=== PATIENT | female | born 1965 | race Asian ===

== ENCOUNTER 2020-09-25 16:13 | Emergency (ER) | payer BC, SELFPAY ==
[2020-09-25] VITALS (7 sets, daily range): BP systolic 124–147; BP diastolic 60–77; PULSE 72–85; RESP 16–18; TEMP 36.7–36.8; O2SAT 98–99; BMI 27.3
--- NOTE | ~2020-09-25 | XR_ITS ---
EXAMINATION: XR CHEST CLINICAL INFORMATION: Chest pain COMPARISON: None TECHNIQUE: 2 views of the chest were obtained. FINDINGS: No significant abnormality is noted involving the heart, lungs, mediastinum, bony thorax or soft tissues. Surgical clips are noted in the gallbladder fossa. XR/XR chest 2V IMPRESSION: Unremarkable examination.
--- NOTE | ~2020-09-25 | CT_ITS ---
CT head/brain wo con CLINICAL INFORMATION: Reason for Exam headache and vertigo COMPARISON: No prior CT scan available for comparison. TECHNIQUE: Department standard protocol. This CT examination was performed using dose optimization techniques as appropriate, variously including the following: *Automated exposure control *Adjustment of mA and/or kV according to patient size (this includes techniques or standardized protocols for targeted exams where dose is matched to indication/reason for exam; i.e. extremities or head) *Use of iterative reconstruction technique DLP: 673 mGy-cm FINDINGS: CEREBRAL HEMISPHERES: There is no evidence of intra-axial or extra-axial mass, hemorrhage or acute infarct. BRAIN PARENCHYMA: Normal woodard-white matter differentiation. SUBDURAL SPACE: No bleed. BASAL GANGLIA AND PINEAL GLAND: Unremarkable VENTRICLES: Symmetric and normal in size. CEREBELLUM AND BRAINSTEM: No space-occupying mass, hemorrhage or acute infarct. CEREBELLOPONTINE ANGLES: No lesion found. ORBITS: No intraorbital mass. VESSELS: Unremarkable SKULL BASE: Unremarkable INCLUDED SINUSES AT SKULL BASE: Clear SKULL AND SKIN: No fracture or bone lesion found. CT/CT head/brain wo con IMPRESSION: No CT evidence of intracranial space-occupying mass, bleed or infarct. Normal CT scan does not rule out the possibility of hyperacute infarct in the first 12 hours. If patient symptoms persist may consider correlation with MRI, which is more sensitive for early acute infarct.
--- NOTE | 2020-09-25 17:34 | ED_ITS ---
HPI - General Adult General Chief complaint: Dizziness <KAYLA Lin - Last Filed: 09/25/20 17:37> Stated complaint: Dizziness/Vomiting <KAYLA Lin - Last Filed: 09/25/20 17:37> Time Seen by Provider: 09/25/20 17:34 <KAYLA Lin - Last Filed: 09/25/20 17:37> Source: patient <Bret Young MD - Last Filed: 09/25/20 23:05> Mode of arrival: ambulatory <Bret Young MD - Last Filed: 09/25/20 23:05> Limitations: no limitations <Bret Young MD - Last Filed: 09/25/20 23:05> History of Present Illness HPI narrative: Woke this morning with the room spinning and has a headache. patient vomited twice. Does not suffer from headaches or vertigo. Headache is frontal. <Bret Young MD - Last Filed: 09/25/20 23:05> Onset (ago): hour(s) <Bret Young MD - Last Filed: 09/25/20 23:05> Radiation: non-radiation <Bret Young MD - Last Filed: 09/25/20 23:05> Severity: moderate <Bret Young MD - Last Filed: 09/25/20 23:05> Pain Consistency: constant <Bret Young MD - Last Filed: 09/25/20 23:05> Associated symptoms: headaches and nausea/vomiting <Bret Young MD - Last Filed: 09/25/20 23:05> Related Data Home medications: Previous Rx's Medication Instructions Recorded meclizine 25 mg PO TID PRN #20 tab 09/25/20 naproxen [Naprosyn] 500 mg PO BID #20 tab 09/25/20 <KAYLA Lin - Last Filed: 09/25/20 17:37> Allergies/adverse reactions: Allergies Allergy/AdvReac Type Severity Reaction Status Date / Time No Known Allergies Allergy Verified 09/25/20 17:35 <KAYLA Lin - Last Filed: 09/25/20 17:37> Review of Systems Constitutional: Constitutional: Reports no additional constitutional complaints <Bret Young MD - Last Filed: 09/25/20 23:05> Eyes: Eyes: Reports no additional eye complaints <Bret Young MD - Last Filed: 09/25/20 23:05> ENT: Denies dizziness <Bret Young MD - Last Filed: 09/25/20 23:05> Cardiovascular: Cardiovascular: Reports no additional cardiovascular complaints <Bret Young MD - Last Filed: 09/25/20 23:05> Respiratory: Respiratory: Reports as per HPI <Bret Young MD - Last Filed: 09/25/20 23:05> Gastrointestinal: Gastrointestinal: Reports no additional gastrointestinal complaints <Bret Young MD - Last Filed: 09/25/20 23:05> Genitourinary: Genitourinary: Reports no additional female genitourinary complaints <Bret Young MD - Last Filed: 09/25/20 23:05> Musculoskeletal: Musculoskeletal: Reports no additional musculoskeletal complaints <Bret Young MD - Last Filed: 09/25/20 23:05> Integumentary/Breasts: Skin/Breast: Denies rash <Bret Young MD - Last Filed: 09/25/20 23:05> Neurologic: Reports system reviewed and no additional complaints, except as documented, Denies dizziness and Denies Sensory deficit (Neuro) <Bret Young MD - Last Filed: 09/25/20 23:05> Psychiatric: Psychiatric: Denies anxiety <Bret Young MD - Last Filed: 09/25/20 23:05> [facility] Social History Social History: Social History Patient Tobacco Use Status: Never used Tobacco Use of substances other than those prescribed or required for medical reasons: No Advance Directives: No Advance Directives Information Provided: Yes <KAYLA Lin - Last Filed: 09/25/20 17:37> Physical Exam Vital Signs: Vital Signs: Last Vital Signs Temp 98.3 F 09/25/20 20:21 Pulse 84 09/25/20 20:21 Resp 18 09/25/20 20:21 BP 136/60 09/25/20 20:21 Pulse Ox 98 09/25/20 20:21 Body Mass Index 27.3 <Stephanie Renschler, PA - Last Filed: 09/25/20 17:37> Vital Signs: Last Vital Signs Temp 98.3 F 09/25/20 20:21 Pulse 84 09/25/20 20:21 Resp 18 09/25/20 20:21 BP 136/60 09/25/20 20:21 Pulse Ox 98 09/25/20 20:21 Body Mass Index 27.3 <Bret Young MD - Last Filed: 09/25/20 23:05> Const: Other: Patient suffering from headache <Bret Young MD - Last Filed: 09/25/20 23:05> General: healthy appearing <Bret Young MD - Last Filed: 09/25/20 23:05> Nutritional Appearance: average body habitus <Bret Young MD - Last Filed: 09/25/20 23:05> Orientation/consciousness: oriented to person and patient oriented x3 <Bret Young MD - Last Filed: 09/25/20 23:05> Limitations: no limitations <Bret Young MD - Last Filed: 09/25/20 23:05> HENMT: Other: TMs normal <Bret Young MD - Last Filed: 09/25/20 23:05> Head: Yes normal to inspection <Bret Young MD - Last Filed: 09/25/20 23:05> Ears: external ears normal <Bret Young MD - Last Filed: 09/25/20 23:05> General nose exam: Normal external nose present <Bret Young MD - Last Filed: 09/25/20 23:05> Mouth: Normal oral and palatal mucosa present and oropharynx normal <Bret Young MD - Last Filed: 09/25/20 23:05> Throat: Yes posterior oropharynx normal <Bret Young MD - Last Filed: 09/25/20 23:05> Eyes: General: appearance normal, both eyes and all related structures <Bret Young MD - Last Filed: 09/25/20 23:05> Neck: Other: supple <Bret Young MD - Last Filed: 09/25/20 23:05> Neck: Yes normal visual inspection <Bret Young MD - Last Filed: 09/25/20 23:05> Chest: Chest palpation & inspection: normal inspection of the chest <Bret Young MD - Last Filed: 09/25/20 23:05> Resp: Auscultation: clear to auscultation bilaterally <Bret Young MD - Last Filed: 09/25/20 23:05> Cardio: Jugular venous distension: no JVD <Bret Young MD - Last Filed: 09/25/20 23:05> Rate: regular rate <Bret Young MD - Last Filed: 09/25/20 23:05> Rhythm: regular rhythm <Bret Young MD - Last Filed: 09/25/20 23:05> Heart sounds: S1 normal heart sound present and S2 normal heart sound present <Bret Young MD - Last Filed: 09/25/20 23:05> GI: Inspection: Yes normal to inspection <Bret Young MD - Last Filed: 09/25/20 23:05> Palpation (GI): Soft to palpation, nontender and No hepatosplenomegaly present <Bret Young MD - Last Filed: 09/25/20 23:05> Auscultation: normal bowel sounds <Bret Young MD - Last Filed: 09/25/20 23:05> : General: Yes no CVA tenderness <Bret Young MD - Last Filed: 0 09/25/20 23:05> Back/Spine/Pelvis: Back: no CVA tenderness <Bret Young MD - Last Filed: 09/25/20 23:05> Skin: General skin exam: no rashes or lesions noted <Bret Young MD - Last Filed: 09/25/20 23:05> Neuro: General: oriented to person and patient oriented x3 <Bret Young MD - Last Filed: 09/25/20 23:05> Cranial nerves: Yes CN's II-XII intact bilaterally <Bret Young MD - Last Filed: 09/25/20 23:05> Motor exam (neuro): 5/5 motor strength present throughout <Bret Young MD - Last Filed: 09/25/20 23:05> Sensory Exam: No Sensory deficit (Neuro) <Bret Young MD - Last Filed: 09/25/20 23:05> Extrem: General: Yes normal to inspection <Bret Young MD - Last Filed: 09/25/20 23:05> Psych: Appearance: grossly normal <Bret Young MD - Last Filed: 09/25/20 23:05> Course Course Course Narrative: Rapid medical assessment: 55 y/o female with history of HTN presenting to ED from Urgent Care with acute onset of dizziness that started when she woke up this morning, vomiting x2 along intermittent left sided chest pain that started 3 weeks. No SOB or HALL. Urgent Care EKG with possible S1Q3T3 concerning for PE so she was brought to the ER for evaluation. No tachycardia or hypoxia. No personal or family hx blood clots. Will repeat EKG, labs including DDIMER. <KAYLA Lin - Last Filed: 09/25/20 17:37> Reevaluation(s) Reevaluation #1: EKG has no evidence of PE, patient with headache and vertigo <Bret Young MD - Last Filed: 09/25/20 23:05> Reevaluation #2: patient with negative head CT, headache mostly improved but now has vertigo with nystagmus will give meclizine <Bret Young MD - Last Filed: 09/25/20 23:05> Time: 21:18 <Bret Young MD - Last Filed: 09/25/20 23:05> Reevaluation #3: Patient improved with meclizine will dc home with vertigo diagnosis and headache <Bret Young MD - Last Filed: 09/25/20 23:05> Time: 23:03 <Bret Young MD - Last Filed: 09/25/20 23:05> Medical Decision Making Lab Data Result diagrams: : 09/25/20 18:49 09/25/20 18:49 <KAYLA Lin - Last Filed: 09/25/20 17:37> Labs: Lab Results 09/25/20 09/25/20 09/25/20 Range/Units 18:41 18:49 18:49 WBC 11.8 H (4.8-10.8) X10*3/uL RBC 3.79 L (4.20-5.50) X10*6/uL Hgb 11.0 L (12.0-16.0) g/dl Hct 33.5 L (37-47) % MCV 88.4 (80-98) fL MCH 29.0 (27.0-33.0) pg MCHC 32.8 (31.0-35.0) g/dl RDW 12.1 (11.0-16.0) % Plt Count 393 (160-400) X10*3/uL MPV 8.8 L (9.4-12.3) fL Immature Gran % (Auto) 0.8 H (0.0-0.4) % Neut % (Auto) 83.9 H (45-73) % Lymph % (Auto) 12.6 L (20-40) % [place] % (Auto) 2.2 (2-11) % Eos % (Auto) 0.2 (0-4) % Baso % (Auto) 0.3 (0-2) % Lymph # (Auto) 1.5 (1.2-4.9) X10*3/uL [place] # (Auto) 0.3 (0.1-1.2) X10*3/uL Eos # (Auto) 0.0 (0.0-0.4) X10*3/uL Baso # (Auto) 0.0 (0.0-0.2) X10*3/uL Abs Immat Gran (auto) 0.09 H (0.00-0.03) X10*3/uL Absolute Neuts (auto) 9.9 H (2.0-8.3) X10*3/uL Absolute Nucleated RBC 0.000 (0.0-0.012) X10*3/uL Nucleated RBC % (auto) 0.0 (0.0-0.2) /100WBC PT (9.9-13.0) SEC INR (0.9-1.1) APTT (24.1-38.0) SEC Sodium 139 (135-145) mmol/L Potassium 4.3 (3.3-5.1) mmol/L Chloride 106 (96-108) mmol/L Carbon Dioxide 24 (22-29) mmol/L Anion Gap 13 (12-20) BUN 12 (9-16) mg/dL Creatinine 0.60 (0.5-1.4) mg/dL Estim Creat Clear Calc 89.2 Estimated GFR > 60 Random Glucose 114 (60-115) mg/dL Calcium 9.5 (8.4-10.2) mg/dL Magnesium 2.0 (1.6-2.6) mg/dL Total Bilirubin 0.5 (0.0-1.0) mg/dL Direct Bilirubin 0.2 (0.0-0.5) mg/dL AST 34 H (5-31) U/L ALT 37 H (0-31) U/L Alkaline Phosphatase 107 (39-117) U/L Troponin I High Sens (<3.5-17.0) ng/L Total Protein 7.8 (6.5-8.0) g/dL Albumin 4.3 (3.5-5.0) g/dL Urine Color YELLOW Urine Appearance CLEAR Urine pH 7.0 (5.0-8.0) Ur Specific [place] 1.020 (1.005-1.025) Urine Protein 1+ H (NEG-TRACE) MG/DL Urine Glucose (UA) NEG (NEG) MG/DL Urine Ketones NEG (NEG) MG/DL Urine Blood 3+ H (NEG) Urine Nitrite NEG (NEG) Ur Leukocyte Esterase NEG (NEG) Urine RBC 30-49 H (0) /HPF Urine WBC 1-4 (0-4) /HPF Ur Squamous Epith Cells 2+ /LPF Urine Bacteria TRACE /LPF Urine Mucus 1+ /LPF 09/25/20 09/25/20 Range/Units 18:49 18:49 WBC (4.8-10.8) X10*3/uL RBC (4.20-5.50) X10*6/uL Hgb (12.0-16.0) g/dl Hct (37-47) % MCV (80-98) fL MCH (27.0-33.0) pg MCHC (31.0-35.0) g/dl RDW (11.0-16.0) % Plt Count (160-400) X10*3/uL MPV (9.4-12.3) fL Immature Gran % (Auto) (0.0-0.4) % Neut % (Auto) (45-73) % Lymph % (Auto) (20-40) % [place] % (Auto) (2-11) % Eos % (Auto) (0-4) % Baso % (Auto) (0-2) % Lymph # (Auto) (1.2-4.9) X10*3/uL [place] # (Auto) (0.1-1.2) X10*3/uL Eos # (Auto) (0.0-0.4) X10*3/uL Baso # (Auto) (0.0-0.2) X10*3/uL Abs Immat Gran (auto) (0.00-0.03) X10*3/uL Absolute Neuts (auto) (2.0-8.3) X10*3/uL Absolute Nucleated RBC (0.0-0.012) X10*3/uL Nucleated RBC % (auto) (0.0-0.2) /100WBC PT 10.5 (9.9-13.0) SEC INR 0.9 (0.9-1.1) APTT 34.2 (24.1-38.0) SEC Sodium (135-145) mmol/L Potassium (3.3-5.1) mmol/L Chloride (96-108) mmol/L Carbon Dioxide (22-29) mmol/L Anion Gap (12-20) BUN (9-16) mg/dL Creatinine (0.5-1.4) mg/dL Estim Creat Clear Calc Estimated GFR Random Glucose (60-115) mg/dL Calcium (8.4-10.2) mg/dL Magnesium (1.6-2.6) mg/dL Total Bilirubin (0.0-1.0) mg/dL Direct Bilirubin (0.0-0.5) mg/dL AST (5-31) U/L ALT (0-31) U/L Alkaline Phosphatase (39-117) U/L Troponin I High Sens < 3.5 (<3.5-17.0) ng/L Total Protein (6.5-8.0) g/dL Albumin (3.5-5.0) g/dL Urine Color Urine Appearance Urine pH (5.0-8.0) Ur Specific [place] (1.005-1.025) Urine Protein (NEG-TRACE) MG/DL Urine Glucose (UA) (NEG) MG/DL Urine Ketones (NEG) MG/DL Urine Blood (NEG) Urine Nitrite (NEG) Ur Leukocyte Esterase (NEG) Urine RBC (0) /HPF Urine WBC (0-4) /HPF Ur Squamous Epith Cells /LPF Urine Bacteria /LPF Urine Mucus /LPF <KAYLA Lin - Last Filed: 09/25/20 17:37> Lab Results 09/25/20 09/25/20 09/25/20 Range/Units 18:41 18:49 18:49 WBC 11.8 H (4.8-10.8) X10*3/uL RBC 3.79 L (4.20-5.50) X10*6/uL Hgb 11.0 L (12.0-16.0) g/dl Hct 33.5 L (37-47) % MCV 88.4 (80-98) fL MCH 29.0 (27.0-33.0) pg MCHC 32.8 (31.0-35.0) g/dl RDW 12.1 (11.0-16.0) % Plt Count 393 (160-400) X10*3/uL MPV 8.8 L (9.4-12.3) fL Immature Gran % (Auto) 0.8 H (0.0-0.4) % Neut % (Auto) 83.9 H (45-73) % Lymph % (Auto) 12.6 L (20-40) % [place] % (Auto) 2.2 (2-11) % Eos % (Auto) 0.2 (0-4) % Baso % (Auto) 0.3 (0-2) % Lymph # (Auto) 1.5 (1.2-4.9) X10*3/uL [place] # (Auto) 0.3 (0.1-1.2) X10*3/uL Eos # (Auto) 0.0 (0.0-0.4) X10*3/uL Baso # (Auto) 0.0 (0.0-0.2) X10*3/uL Abs Immat Gran (auto) 0.09 H (0.00-0.03) X10*3/uL Absolute Neuts (auto) 9.9 H (2.0-8.3) X10*3/uL Absolute Nucleated RBC 0.000 (0.0-0.012) X10*3/uL Nucleated RBC % (auto) 0.0 (0.0-0.2) /100WBC PT (9.9-13.0) SEC INR (0.9-1.1) APTT (24.1-38.0) SEC Sodium 139 (135-145) mmol/L Potassium 4.3 (3.3-5.1) mmol/L Chloride 106 (96-108) mmol/L Carbon Dioxide 24 (22-29) mmol/L Anion Gap 13 (12-20) BUN 12 (9-16) mg/dL Creatinine 0.60 (0.5-1.4) mg/dL Estim Creat Clear Calc 89.2 Estimated GFR > 60 Random Glucose 114 (60-115) mg/dL Calcium 9.5 (8.4-10.2) mg/dL Magnesium 2.0 (1.6-2.6) mg/dL Total Bilirubin 0.5 (0.0-1.0) mg/dL Direct Bilirubin 0.2 (0.0-0.5) mg/dL AST 34 H (5-31) U/L ALT 37 H (0-31) U/L Alkaline Phosphatase 107 (39-117) U/L Troponin I High Sens (<3.5-17.0) ng/L Total Protein 7.8 (6.5-8.0) g/dL Albumin 4.3 (3.5-5.0) g/dL Urine Color YELLOW Urine Appearance CLEAR Urine pH 7.0 (5.0-8.0) Ur Specific [place] 1.020 (1.005-1.025) Urine Protein 1+ H (NEG-TRACE) MG/DL Urine Glucose (UA) NEG (NEG) MG/DL Urine Ketones NEG (NEG) MG/DL Urine Blood 3+ H (NEG) Urine Nitrite NEG (NEG) Ur Leukocyte Esterase NEG (NEG) Urine RBC 30-49 H (0) /HPF Urine WBC 1-4 (0-4) /HPF Ur Squamous Epith Cells 2+ /LPF Urine Bacteria TRACE /LPF Urine Mucus 1+ /LPF 09/25/20 09/25/20 Range/Units 18:49 18:49 WBC (4.8-10.8) X10*3/uL RBC (4.20-5.50) X10*6/uL Hgb (12.0-16.0) g/dl Hct (37-47) % MCV (80-98) fL MCH (27.0-33.0) pg MCHC (31.0-35.0) g/dl RDW (11.0-16.0) % Plt Count (160-400) X10*3/uL MPV (9.4-12.3) fL Immature Gran % (Auto) (0.0-0.4) % Neut % (Auto) (45-73) % Lymph % (Auto) (20-40) % [place] % (Auto) (2-11) % Eos % (Auto) (0-4) % Baso % (Auto) (0-2) % Lymph # (Auto) (1.2-4.9) X10*3/uL [place] # (Auto) (0.1-1.2) X10*3/uL Eos # (Auto) (0.0-0.4) X10*3/uL Baso # (Auto) (0.0-0.2) X10*3/uL Abs Immat Gran (auto) (0.00-0.03) X10*3/uL Absolute Neuts (auto) (2.0-8.3) X10*3/uL Absolute Nucleated RBC (0.0-0.012) X10*3/uL Nucleated RBC % (auto) (0.0-0.2) /100WBC PT 10.5 (9.9-13.0) SEC INR 0.9 (0.9-1.1) APTT 34.2 (24.1-38.0) SEC Sodium (135-145) mmol/L Potassium (3.3-5.1) mmol/L Chloride (96-108) mmol/L Carbon Dioxide (22-29) mmol/L Anion Gap (12-20) BUN (9-16) mg/dL Creatinine (0.5-1.4) mg/dL Estim Creat Clear Calc Estimated GFR Random Glucose (60-115) mg/dL Calcium (8.4-10.2) mg/dL Magnesium (1.6-2.6) mg/dL Total Bilirubin (0.0-1.0) mg/dL Direct Bilirubin (0.0-0.5) mg/dL AST (5-31) U/L ALT (0-31) U/L Alkaline Phosphatase (39-117) U/L Troponin I High Sens < 3.5 (<3.5-17.0) ng/L Total Protein (6.5-8.0) g/dL Albumin (3.5-5.0) g/dL Urine Color Urine Appearance Urine pH (5.0-8.0) Ur Specific [place] (1.005-1.025) Urine Protein (NEG-TRACE) MG/DL Urine Glucose (UA) (NEG) MG/DL Urine Ketones (NEG) MG/DL Urine Blood (NEG) Urine Nitrite (NEG) Ur Leukocyte Esterase (NEG) Urine RBC (0) /HPF Urine WBC (0-4) /HPF Ur Squamous Epith Cells /LPF Urine Bacteria /LPF Urine Mucus /LPF <Bret Young MD - Last Filed: 09/25/20 23:05> Imaging Data Chest x-ray: Radiologist's impression: IMPRESSION: Unremarkable examination. <Bret Young MD - Last Filed: 09/25/20 23:05> CT scan - head: Radiologist's impression: IMPRESSION: No CT evidence of intracranial space-occupying mass, bleed or infarct. <Bret Young MD - Last Filed: 09/25/20 23:05> ECG Data Attestation: I personally reviewed and interpreted this ECG as follows: <Bret Young MD - Last Filed: 09/25/20 23:05> Interpretation: normal sinus of 75, no St or twave changes <Bret Young MD - Last Filed: 09/25/20 23:05> Discharge Plan Discharge Clinical Impression: Benign paroxysmal positional vertigo Qualifiers: Laterality: unspecified laterality Qualified Code(s): H81.10 - Benign paroxysmal vertigo, unspecified ear Headache Qualifiers: Headache type: unspecified Headache chronicity pattern: acute headache Intractability: not intractable Qualified Code(s): R51.9 - Headache, unspecified <KAYLA Lin - Last Filed: 09/25/20 17:37> Patient Disposition: Home, Self-Care <KAYLA Lin - Last Filed: 09/25/20 17:37> Instructions: Acute Headache (ED), Benign Paroxysmal Positional Vertigo (ED) <KAYLA Lin - Last Filed: 09/25/20 17:37> Prescriptions: New naproxen [Naprosyn] 500 mg tablet 500 mg PO BID Qty: 20 RF: 0 meclizine 25 mg tablet 25 mg PO TID PRN (Reason: dizziness) Qty: 20 RF: 0 <KAYLA Lin - Last Filed: 09/25/20 17:37> Referrals: Chavo Cardoso [Primary Care Provider] - 5 days <KAYLA Lin - Last Filed: 09/25/20 17:37>
--- NOTE | 2020-09-25 17:37 | ECG_ITS ---
Test Reason : DIZZINESS Blood Pressure : / mmHG Vent. Rate : 075 BPM Atrial Rate : 075 BPM P-R Int : 144 ms QRS Dur : 080 ms QT Int : 406 ms P-R-T Axes : 068 039 044 degrees QTc Int : 453 ms Normal sinus rhythm Normal ECG No previous ECGs available Referred By: Stephanie Manzanares Electronically Signed By:JESUS ALBERTO BANUELOS MD
[2020-09-25 18:55] LABS: Glucose Urine UA NEG (NEG); Leukocyte Esterase Urine NEG (NEG); Nitrite Urine NEG (NEG); Urine Blood 3+ (NEG); Urine Ketones NEG (NEG); Urine Protein 1+ MG/DL (NEG-TRACE)
[2020-09-25 18:55] LABS: MANUAL DIFF FLAG NO
[2020-09-25 18:57] LABS: Appearance Urine CLEAR; Color Urine YELLOW
[2020-09-25 19:02] LABS: Bacteria Urine TRACE /LPF; Mucus Urine 1+ /LPF; RBC Urine 30-49 /HPF (0); Squamous Epithelial Cell Urine 2+ /LPF
[2020-09-25 19:02] LABS: INTERNATIONAL NORM RATIO 0.9 (0.9-1.1); Prothrombin Time 10.5 SEC (9.9-13.0)
[2020-09-25 19:04] LABS: Partial Thromboplastin Time 34.2 SEC (24.1-38.0)
[2020-09-25 19:19] LABS: Basophils Percent Auto 0.3 % (0-2); Eosinophils Percent Auto 0.2 % (0-4); Hematocrit 33.5 % (37-47); Imm Gran Abs Auto 0.09 X10*3/uL (0.00-0.03); Imm Gran Pct Auto 0.8 % (0.0-0.4); Lymphocytes Absolute Auto 1.5 X10*3/uL (1.2-4.9); Lymphocytes Percent Auto 12.6 % (20-40); Mean Corpuscular HGB Conc 32.8 g/dl (31.0-35.0); Mean Corpuscular Volume 88.4 fL (80-98); Mean Platelet Volume 8.8 fL (9.4-12.3); Monocytes Absolute Auto 0.3 X10*3/uL (0.1-1.2); Monocytes Percent Auto 2.2 % (2-11); Neutrophils Absolute Auto 9.9 X10*3/uL (2.0-8.3); Neutrophils Percent Auto 83.9 % (45-73); Platelet Count 393 X10*3/uL (160-400); Red Blood Count 3.79 X10*6/uL (4.20-5.50); Red Cell Distribution Width 12.1 % (11.0-16.0); White Blood Count 11.8 X10*3/uL (4.8-10.8)
[2020-09-25 19:25] LABS: Alanine Aminotransferase 37 U/L (0-31); Albumin Level 4.3 g/dL (3.5-5.0); Alkaline Phosphatase 107 U/L (39-117); Anion Gap 13 (12-20); Aspartate Amino Transferase 34 U/L (5-31); Bilirubin Direct 0.2 mg/dL (0.0-0.5); Bilirubin Total 0.5 mg/dL (0.0-1.0); Blood Urea Nitrogen 12 mg/dL (9-16); Calcium 9.5 mg/dL (8.4-10.2); Carbon Dioxide 24 mmol/L (22-29); Chloride 106 mmol/L (96-108); Creatinine Clr Calc Pharmacy 89.2; Estimated Glomerular Filt Rate > 60; Glucose Random 114 mg/dL (60-115); Potassium 4.3 mmol/L (3.3-5.1); Sodium 139 mmol/L (135-145); Total Protein 7.8 g/dL (6.5-8.0)
[2020-09-25 19:31] LABS: Troponin-I High Sensitivity < 3.5 ng/L (<3.5-17.0)
--- NOTE | 2020-09-25 20:00 | PC.NURSE ---
pt resting in the stretcher with her eyes shut, pt reports having sever frontal headache that started yesterday, vomited x2 this morning, light and noise sensitivity, but also started with dizziness prior to the headache. vs stable
[2020-09-25] MEDS: 0.9 % Sodium Chloride 1,000 ML 999 ML IVCONT ×2 (20:01→21:45)
[2020-09-25] MEDS: Ketorolac Tromethamine 30 MG/ML VIAL IVPUSH (20:02)
--- NOTE | 2020-09-25 20:49 | PC.NURSE ---
pt reports no improvement after the medications
[2020-09-25] MEDS: Meclizine HCl 25 MG TABLET 50 MG PO (21:43)
--- NOTE | 2020-09-25 21:47 | PC.NURSE ---
pt reports headache starting to improve pain at 7/10 but still having the dizziness
--- NOTE | 2020-09-25 23:02 | PC.NURSE ---
pt reports that her dizziness has improved, ready to go home
== END 2020-09-25 23:14 | disposition home or self-care (01) ==
PROVIDERS: Physician Assistant; Emergency Provider Emergency Medicine; PCP Hospitalist
DX: H81.10 Benign paroxysmal vertigo, unspecified ear (principal); R51.9 Headache, unspecified; I10 Essential (primary) hypertension
CPT/HCPCS: 36415; 70450; 71046; 80048; 80076; 81001; 83735; 84484; 85025; 85610; 85730; 93005; 96361; 96374; 96375; 99285; J1885; J2550

== ENCOUNTER → 2024-09-04 14:09 | Outpatient (BNVA) | payer OTHER, SELFPAY | PROVIDERS: PCP Hospitalist; Visit Provider Physician Assistant Medical | DX: S80.01XA Contusion of right knee, initial encounter (principal); S80.02XA Contusion of left knee, initial encounter; W18.09XA Striking against other object with subsequent fall, initial encounter; M25.461 Effusion, right knee | CPT/HCPCS: 73564; 99204 ==

== ENCOUNTER → 2024-09-11 08:32 | Outpatient (BNVA) | payer OTHER, SELFPAY | PROVIDERS: PCP Hospitalist; Visit Provider Physician Assistant Medical | DX: S80.01XD Contusion of right knee, subsequent encounter (principal); S80.02XD Contusion of left knee, subsequent encounter; W18.09XD Striking against other object with subsequent fall, subsequent encounter | CPT/HCPCS: 99213 ==

== ENCOUNTER → 2024-09-25 07:51 | Outpatient (BNVA) | payer OTHER, SELFPAY | PROVIDERS: PCP Hospitalist; Visit Provider Physician Assistant Medical | DX: S80.01XD Contusion of right knee, subsequent encounter (principal); S80.02XD Contusion of left knee, subsequent encounter; W18.09XD Striking against other object with subsequent fall, subsequent encounter; M25.461 Effusion, right knee | CPT/HCPCS: 99213 ==

== ENCOUNTER → 2024-10-09 08:05 | Outpatient (BNVA) | payer OTHER, SELFPAY | PROVIDERS: PCP Hospitalist; Visit Provider Physician Assistant Medical | DX: S80.01XD Contusion of right knee, subsequent encounter (principal); S80.02XD Contusion of left knee, subsequent encounter; M25.462 Effusion, left knee; M25.461 Effusion, right knee | CPT/HCPCS: 99213 ==

== ENCOUNTER → 2024-11-10 12:55 | Outpatient (BNVA) | payer OTHER, SELFPAY | PROVIDERS: PCP Hospitalist; Visit Provider Physician Assistant Medical | DX: S80.01XD Contusion of right knee, subsequent encounter (principal); S80.02XD Contusion of left knee, subsequent encounter; W18.09XD Striking against other object with subsequent fall, subsequent encounter; M25.461 Effusion, right knee; M25.462 Effusion, left knee | CPT/HCPCS: 99213 ==

== ENCOUNTER → 2024-12-22 13:45 | Outpatient (BNVA) | payer OTHER, SELFPAY | PROVIDERS: PCP Hospitalist; Visit Provider Physician Assistant Medical | DX: S80.01XD Contusion of right knee, subsequent encounter (principal); S80.02XD Contusion of left knee, subsequent encounter; W18.09XD Striking against other object with subsequent fall, subsequent encounter; M25.461 Effusion, right knee | CPT/HCPCS: 99213 ==

== ENCOUNTER 2025-01-16 13:16 | Outpatient (REF) | payer OTHER, SELFPAY ==
--- NOTE | ~2025-01-16 | XR_ITS ---
EXAMINATION: XR KNEE, LEFT CLINICAL INFORMATION: M25.569 - Pain in unspecified knee COMPARISON: Right knee x-ray August 2024 TECHNIQUE: Standing AP view of both knees and lateral and sunrise view of the left knee of the left knee. FINDINGS: Left knee: Bone alignment is normal. No fracture or dislocation. Normal femoral tibial joints. Arthritis at the patellofemoral joint with small osteophytes. Osteophyte at the quadriceps tendon insertion to the patella. No significant joint effusion. Standing AP view of the right knee is unremarkable. XR/XR knee LT 3V IMPRESSION: Arthritis of the left patellofemoral joint. Electronically signed by: Mehga Howard MD 01/16/2025 02:40 PM EST
== END 2025-01-16 13:17 | disposition home or self-care (01) ==
LOC: HO.HOSX 13:16
PROVIDERS: Visit Provider Physician Assistant
DX: M17.12 Unilateral primary osteoarthritis, left knee (principal)
CPT/HCPCS: 20610; 73562; 99202; J0665; J1100; J2003

== ENCOUNTER 2025-01-16 14:17 | Outpatient (AMB) | payer OTHER, SELFPAY ==
--- NOTE | 2025-01-16 14:31 | A.OFFVIS_ITS ---
Intake Visit Reasons: New Pt - left knee effusion, WC 09/04/24 Intake Note: Richardson is a 59 year old female who presents today as a new patient for a evaluation of her bilateral knee injury, DOI 09/04/24. Patient reports she tripped and fell on to both of her knees at work. She notices that her right knee is still having a little bit of pain. However her left knee is the worst. Patient reports trying castor oil and aleve with mild relief. 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 Allergies No Known Allergies Allergy (Verified 01/16/25 14:39) HPI HPI New Pt - left knee effusion, WC 09/04/24: Details: Ms. Taylor is a 59-year-old female who presents to the office today for evaluation of a left knee injury that occurred on 09/04/2024 while at work. She reports that she tripped and fell landing on both knees. Her right knee is having a little bit of pain but the majority of the pain is located in the left knee and she points to the anterior aspect. Patient states that she has not had any physical therapy, cortisone injections or knee bracing. She has tried castor oil and Aleve with mild relief. 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 No ecchymosis, erythema or joint effusion. Range of motion 0-120 degrees with crepitus. Retropatellar tenderness. No tenderness to the medial and lateral joint lines. Negative Jeffrey's. NVI. Psych Appearance: grossly normal Mental Status: mental status grossly normal Attitude: cooperative Office Procedures AMB Joint Injection/Aspiration Joint Injection/Aspiration Primary Site: left knee Prep: site was prepped using aseptic technique, ethochloride spray was applied and injection warnings given Injected: 40 mg of, with 3 mL of, with 8 mL of, 1% plain lidocaine, 0.25% bupivacaine, in the joint and decadron Approach Used: anterolateral Procedure: The patient tolerated the procedure well, but had some pain with the injection and there was some relief with the local anesthesia Coding 94552 - Large joint Procedure code (CPT) selection complete Assessment & Plan Assessment & Plan (1) Patellofemoral arthritis of left knee: Code(s): M17.12 - Unilateral primary osteoarthritis, left knee Category: Medical Plan Ms. Taylor is a 59-year-old female who presents to the office today for evaluation of a left knee injury that occurred on 09/04/2024 while at work. She reports that she tripped and fell landing on both knees. Her right knee is having a little bit of pain but the majority of the pain is located in the left knee and she points to the anterior aspect. Patient states that she has not had any physical therapy, cortisone injections or knee bracing. She has tried castor oil and Aleve with mild relief. While in the office today, we discussed the patient's x-rays findings which were significant for patellofemoral arthritis. Her pain was likely exacerbated by the fall landing directly onto the anterior aspect of her knee. The patient was offered a cortisone injection in the left knee. The patient was explained the risks, benefits, and alternatives to receiving this injection. After receiving consent for the injection, the patient had the procedure done while in the office today. The patient tolerated the procedure well with no complications. Follow-up will be PRN, or sooner if needed X-rays of the left knee which were obtained while in the office today and were reviewed by me, Crystal Mehta PA-C, revealed patellofemoral arthritis. Orders: Orders XR knee LT 3V Today M25.569 - Pain in unspecified knee Coding Level of Care Code New Pt Level 3 (92070) Diagnoses Patellofemoral arthritis of left knee M17.12 CPT Codes Coding - 82370 Large joint: 96307 - Large joint ([id number])
== END 2025-01-16 15:04 | disposition home or self-care (01) ==
LOC: HO.HOS 14:18
PROVIDERS: PCP Hospitalist; Visit Provider Physician Assistant
DX: M17.12 Unilateral primary osteoarthritis, left knee (principal)
CPT/HCPCS: 20610; 99203

== ENCOUNTER → 2025-01-16 14:23 | Outpatient (BNV) | payer OTHER, SELFPAY | PROVIDERS: Visit Provider Radiology Diagnostic Radiology | DX: M25.562 Pain in left knee (principal) | CPT/HCPCS: 73562 ==

== ENCOUNTER → 2025-01-29 08:53 | Outpatient (BNVA) | payer OTHER, SELFPAY | PROVIDERS: Visit Provider Physician Assistant Medical | DX: S80.01XD Contusion of right knee, subsequent encounter (principal); S80.02XD Contusion of left knee, subsequent encounter; W18.09XD Striking against other object with subsequent fall, subsequent encounter; M25.462 Effusion, left knee; M25.562 Pain in left knee; Z02.79 Encounter for issue of other medical certificate | CPT/HCPCS: 99213 ==

== ENCOUNTER 2025-02-15 08:33 | Emergency (ER) | payer BC, SELFPAY ==
--- NOTE | ~2025-02-15 | XR_ITS ---
EXAMINATIONS: XR HAND 3 OR MORE VIEWS LEFT XR WRIST 3 OR MORE VIEWS LEFT CLINICAL INFORMATION: pain, injury PAIN AND SWELLING L HAND COMPARISON: None TECHNIQUE: PA, lateral, and oblique views of the right hand and wrist. FINDINGS: Comminuted impacted intra-articular fracture of the distal radius, mildly angulated dorsally and with minimally displaced fragment on the ulnar side. Comminuted displaced fracture of the distal ulna and at the base of the ulnar styloid. A small displaced fragment is identified proximal to the lunate-triquetrum joint space. No subluxation. No radiopaque foreign body. XR/XR wrist LT min 3V IMPRESSION: Comminuted displaced fractures of the distal radius and distal ulna. No subluxation. Electronically signed by: Clinton Washington MD 02/15/2025 09:13 AM [facility]
--- NOTE | ~2025-02-15 | XR_ITS ---
EXAMINATIONS: XR HAND 3 OR MORE VIEWS LEFT XR WRIST 3 OR MORE VIEWS LEFT CLINICAL INFORMATION: pain, injury PAIN AND SWELLING L HAND COMPARISON: None TECHNIQUE: PA, lateral, and oblique views of the right hand and wrist. FINDINGS: Comminuted impacted intra-articular fracture of the distal radius, mildly angulated dorsally and with minimally displaced fragment on the ulnar side. Comminuted displaced fracture of the distal ulna and at the base of the ulnar styloid. A small displaced fragment is identified proximal to the lunate-triquetrum joint space. No subluxation. No radiopaque foreign body. XR/XR hand LT min 3V IMPRESSION: Comminuted displaced fractures of the distal radius and distal ulna. No subluxation. Electronically signed by: Clinton Washington MD 02/15/2025 09:13 AM [facility]
[2025-02-15 08:40] VITALS: BP 171/75; PULSE 79; RESP 18; TEMP 36.8; O2SAT 97; BMI 26.4
--- NOTE | 2025-02-15 08:50 | ED.EXTPRO ---
HPI - Extremity Problem General Chief complaint: Extremity Injury, Upper Stated complaint: L hand inj Time Seen by Provider: 02/15/25 08:46 Source: patient Mode of arrival: ambulatory Limitations: no limitations History of Present Illness ED Provider: Milena Biggs PA-C HPI Narrative: Patient is a 59 year old assigned female at with no reported medical history presenting to the emergency department today with left wrist pain. Patient states that this morning she slipped and fell landing on her outstretched left hand / wrist. Patient states that she did not hit her head or have any loss of consciousness with the incident. Patient denies any other complaints at this time. Relieving factors: immobilization Exacerbating factors: range of motion Related Data Home Medications ?Medication ?Instructions ?Recorded ?Confirmed amlodipine 5 mg tablet 5 mg PO DAILY 01/16/25 Previous Rx's ?Medication ?Instructions ?Recorded meclizine 25 mg tablet 25 mg PO TID PRN dizziness #20 tabs 09/25/20 meloxicam 7.5 mg tablet 15 mg (2 x 7.5 mg) PO DAILY #20 09/04/24 tabs Allergies Allergy/AdvReac Type Severity Reaction Status Date / Time No Known Allergies Allergy Verified 02/15/25 08:41 Review of Systems Constitutional: Constitutional: Reports as per HPI Eyes: Eyes: Reports as per HPI ENT: Reports as per HPI Cardiovascular: Cardiovascular: Reports as per HPI Respiratory: Respiratory: Reports as per HPI Gastrointestinal: Gastrointestinal: Reports as per HPI Genitourinary: Genitourinary: Reports as per HPI Musculoskeletal: Musculoskeletal: Reports as per HPI Integumentary/Breasts: Skin/Breast: Reports as per HPI Neurologic: Reports as per HPI Psychiatric: Psychiatric: Reports as per HPI Endocrine: Endocrine: Reports as per HPI Hematologic/Lymphatic: Hematologic/Lymphatic: Reports as per HPI Allergic/Immunologic: Allergic/Immunologic: Reports as per HPI PMFSH Past Medical History Attestation statement: The following information was validated with the patient. 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 Physical Exam Vital Signs: Vital Signs: Last Vital Signs Temp 98.9 F 02/15/25 09:35 Pulse 79 02/15/25 09:35 Resp 16 02/15/25 09:35 BP 147/74 H 02/15/25 09:35 Pulse Ox 97 02/15/25 09:35 O2 Del Method Room Air 02/15/25 09:35 BMI result Body Mass Index 26.4 Const: General: cooperative, no acute distress, alert and awake Nutritional Appearance: well nourished Orientation/consciousness: patient oriented x3 HEENT: Head: Yes normal to inspection and Yes atraumatic Ears: hearing grossly normal bilaterally and external ears normal General nose exam: Normal external nose present, no nasal discharge noted and no epistaxis Face and sinus: Yes normal facial exam, No abrasion and No laceration Mouth: Normal oral and palatal mucosa present, no drooling and no muffled voice Eyes: General: appearance normal, both eyes and all related structures Periorbital: periorbital findings normal Eyelids: Yes eyelids normal Conjunctivae: conjunctivae normal Pupils: Equal, round and reactive pupils present EOM: EOMs intact bilaterally Neck: Neck: Yes normal visual inspection and Yes full ROM Resp: Effort & Inspection: normal respiratory effort and able to speak in complete sentences Neuro: General: patient oriented x3, moves all extremities and CN's II-XI intact bilaterally Cranial nerves: Yes Equal, round and reactive pupils present Cognition (Neuro): normal cognition Extrem: Other: obvious deformity to the left wrist pain with ROM and palpation of the left wrist General: Yes capillary refill normal Psych: Appearance: grossly normal Mental Status: mental status grossly normal Affect: normal affect Attitude: cooperative Thought process: Normal thought process present Thought content: Normal thought content present Insight: Good insight present (Psych) Medical Decision Making Medical Decision Making MDM Narrative: Patient is a 59 year old assigned female at with no reported medical history presenting to the emergency department today with left wrist pain. Patient's physical exam was as noted in the physical exam portion of this note. Patient's left hand / wrist x-rays showed comminuted displaced fractures of the distal radius and distal ulna with no subluxation. I explained my physical exam findings as well as all test results to the patient. I answered all questions asked by the patient. Patient's left wrist was placed in a sugar tong splint, without incident. Patient's left upper extremity PMS was intact prior to and after splint placement. Patient's left upper extremity was placed in a sling, without incident. Patient's PMS was intact prior to and after sling placement. I stressed the importance of the patient taking her medication as directed (either prescribed or as the over the counter packaging recommends). I stressed the importance of the patient following up with her primary care provider and the orthopedic team. I stressed the importance of the patient returning to the emergency department immediately if her symptoms were to worsen or if she were to develop any dizziness, shortness of breath, difficulty breathing, chest pain, blurry vision, loss of vision, nausea, vomiting, abdominal pain, fever, chills, back pain, or any other complaints. Patient verbalized agreement and understanding with this treatment plan and discharge. Differential Diagnosis Differential Diagnoses: The differential diagnosis associated with the presentation includes Left wrist fracture Left ulnar fracture Left radial fracture Left wrist sprain Left wrist strain Admission/Observation Consideration of admission/observation: Escalation of care including admission/observation considered Patient would have been admitted to the hospital had her work up had any findings where hospital admission was appropriate and her clinical presentation warranted hospital admission. Independent Interpretation I performed an independent interpretation of an: Plain X-Ray Interpretation: My interpretation is in agreement with the radiologist's impression of these imaging studies as written below. Reason for Exam: PAIN AND SWELLING L HAND EXAMINATIONS: XR HAND 3 OR MORE VIEWS LEFT XR WRIST 3 OR MORE VIEWS LEFT CLINICAL INFORMATION: pain, injury PAIN AND SWELLING L HAND COMPARISON: None TECHNIQUE: PA, lateral, and oblique views of the right hand and wrist. FINDINGS: Comminuted impacted intra-articular fracture of the distal radius, mildly angulated dorsally and with minimally displaced fragment on the ulnar side. Comminuted displaced fracture of the distal ulna and at the base of the ulnar styloid. A small displaced fragment is identified proximal to the lunate-triquetrum joint space. No subluxation. No radiopaque foreign body. XR/XR wrist LT min 3V IMPRESSION: Comminuted displaced fractures of the distal radius and distal ulna. No subluxation. Electronically signed by: Clinton Washington MD 02/15/2025 09:13 AM [facility] Dictated By: Clinton Washington MD Signed By: Electronically signed by Clinton Washington MD 02/15/25 0913 Radiology Impression Discussion of test interpretation with radiology: I have reviewed the radiologist's reading. Procedures Orthopedic Splinting/Casting L wrist: Side: left Upper Extremity Injury Location: wrist Upper Extremity Immobilizer: sling/shoulder immobilizer and sugar tong splint Discharge Plan Discharge Clinical Impression: Fracture of wrist Qualifiers: Encounter type: initial encounter Fracture type: closed Laterality: left Qualified Code(s): S62.102A - Fracture of unspecified carpal bone, left wrist, initial encounter for closed fracture Left ulnar fracture Qualifiers: Encounter type: initial encounter Ulna location: distal Fracture type: closed Fracture morphology: unspecified fracture morphology Qualified Code(s): S52.602A - Unspecified fracture of lower end of left ulna, initial encounter for closed fracture Closed left radial fracture Qualifiers: Encounter type: initial encounter Radius location: distal Fracture morphology: other fracture Qualified Code(s): S52.592A - Other fractures of lower end of left radius, initial encounter for closed fracture Patient Disposition: Home, Self-Care Instructions: Wrist Fracture in Adults (ED) Additional Instructions: Your left wrist is broken (both the radius + ulna). ONLY wear the sling when you are ambulating - do NOT wear it at rest. If you are ambulating for an extended period of time - be sure every 1 hour you remove the sling for 10 minutes and move the left shoulder to avoid freezing the joint. Do NOT bear weight / use the splinted extremity. Do NOT stick anything down / into your splint. Do NOT get your splint wet. Do NOT remove your splint. If you have any change in sensation, movement, or color of your fingers + thumb - you may loosen the outer JUNIOR wraps. If you find yourself loosening the JUNIOR wraps to the point of seeing the white splint material underneath - STOP and proceed to your closest Emergency Department, immediately. Follow up with your primary care provider and the orthopedic team. Return to the emergency department immediately if your symptoms worsen or if you develop any numbness, tingling, dizziness, shortness of breath, difficulty breathing, chest pain, blurry vision, loss of vision, nausea, vomiting, abdominal pain, fever, chills, back pain, or any other complaints. If you do not have a primary care provider - call any of the below numbers to establish and follow up with a primary care provider. [facility] ([place]) [phone] [place] [address], [address] [facility] ([address] [place]) [phone] [address] [facility], [address] [facility], [address] [facility] ([address] [place]) [phone] [address] [facility], [address] [facility], [address] [facility] ([place]) [phone] [place] [address] [address] [facility], [address] [facility] [phone] [place] [address], [address] Please see the information below about our Patient Portal. If you are not yet enrolled in the [facility] Patient Portal, you will receive an enrollment email invitation following your visit to any [facility] care setting. You may also self-enroll in the Patient Portal by visiting our website: [email or web address] The following information is required to access the Patient Portal: - Your [facility] Medical Record Number - Your personal home email address (must match what is in your electronic medical record, Registration staff can assist with this) - Name - Date of Capabilities of the Patient Portal: - Message some providers - View upcoming appointments - Access your health summary, medical history, and visit history - View current conditions and allergies - View procedure and lab results - View your medications, including guidelines, side effects, and precautions - Complete pre-appointment questionnaires requested by your provider - Ready summary reports of your office visits and procedures To access the Patient Portal Mobile [employer], follow these directions: - Search [employer] in the Antolin Store or Language Cloud Store - Download the [employer] - Search for [facility] - Enter your login/password Prescriptions: No Action meclizine 25 mg tablet 25 mg PO TID PRN (Reason: dizziness) Qty: 20 0RF amlodipine 5 mg tablet 5 mg PO DAILY meloxicam 7.5 mg tablet 15 mg PO DAILY Qty: 20 0RF Referrals: [facility] Orth[facility] Surgeons [Provider Group] Referral Note: Call to establish and follow up with the orthopedic team for your left wrist fracture (radius + ulna) Stand Alone Forms: Work/School Release Print Language: Pashto
[2025-02-15 09:22] VITALS: BP 148/81; PULSE 80; RESP 16; TEMP 36.7; O2SAT 96
--- NOTE | 2025-02-15 09:24 | PC.NURSE ---
Patient presents to ED c/o left wrist pain after slipping in falling Pain rated 8/10 +CMS limited ROM Deformity noted Denies thinners, SOB, C/P, HS Wrist Xray = Comminuted displaced fractures of the distal radius and distal ulna Provider in to see patient
[2025-02-15 09:35] VITALS: BP 147/74; PULSE 79; RESP 16; TEMP 37.2; O2SAT 97
[2025-02-15 11:11] VITALS: BP 154/75; PULSE 73; RESP 18; O2SAT 98
[2025-02-15 11:32] VITALS: BP 154/75; PULSE 73; RESP 18; TEMP 36.8; O2SAT 98
== END 2025-02-15 11:33 | disposition home or self-care (01) ==
PROVIDERS: Emergency Provider Emergency Medicine
DX: S62.102A Fracture of unspecified carpal bone, left wrist, initial encounter for closed fracture (principal); S52.592A Other fractures of lower end of left radius, initial encounter for closed fracture; S52.602A Unspecified fracture of lower end of left ulna, initial encounter for closed fracture; M25.532 Pain in left wrist; X50.1XXA Overexertion from prolonged static or awkward postures, initial encounter; Y93.9 Activity, unspecified; Y92.9 Unspecified place or not applicable; Y99.8 Other external cause status
CPT/HCPCS: 29125; 73110; 73130; 99284

== ENCOUNTER → 2025-02-15 08:59 | Outpatient (BNV) | payer BC, SELFPAY | PROVIDERS: Visit Provider Radiology Body Imaging | DX: S52.352A Displaced comminuted fracture of shaft of radius, left arm, initial encounter for closed fracture (principal) | CPT/HCPCS: 73110; 73130 ==

== ENCOUNTER 2025-02-20 10:59 | Outpatient (AMB) | payer BC, SELFPAY ==
--- NOTE | 2025-02-20 11:35 | A.OFFVIS_ITS ---
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 states on 02/15/25 she slipped and fell landing on her outstretched left hand, seen at [facility] same day where xrays were taken, she was splinted and referred to hand orthopedics for further evaluation. Today patient states she has a lot of pain, numbness and tingling in her fingers, swelling and bruising. Allergies No Known Allergies Allergy (Verified 02/20/25 11:40) HPI HPI FC- Fracture of Left wrist: Details: Richardson is a 59 year old right hand dominant woman who presents for a left distal radius & distal ulna fracture, S/P fall, DOI: 02/15/25. She complains of pain in her wrist, worse with any ROM. She complains of numbness & tingling in the dorsum of her forearm. She says this is intermittent & occasional. 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 Review of Systems Const All systems reviewed & are unremarkable except as noted in HPI and below Physical Exam Const General: cooperative, healthy appearing and no acute distress Orientation/consciousness: patient oriented x3 HEENT Head: Yes normocephalic and Yes atraumatic Eyes EOM: EOMs intact bilaterally Resp Effort & Inspection: normal respiratory effort and able to speak in complete sentences Cardio Jugular venous distension: no JVD Skin General skin exam: turgor normal Rashes: no rashes Neuro General: patient oriented x3 Extrem Other: Evaluation of Left Upper Extremity: The patient is alert, oriented, and in no acute distress Neuro: Median, Ulnar, Radial nerves motor and sensory intact and sensation is normal to the tips of all digits Vascular: Cap refill brisk ROM: She can make a weak fist and extend all her digits No elbow tenderness No pain with proximal forearm squeeze Skin: No lacerations or abrasions. General: No Erythema or evidence of infection. Mild volar ecchymosis Radiographs: 3 views of the left wrist were taken and viewed by me today in clinic. They show a displaced comminuted, intra-articular distal radius fracture. There is also a distal ulna fracture with satisfactory fracture alignment. Psych Appearance: grossly normal Affect: normal affect Attitude: cooperative Assessment & Plan Assessment & Plan (1) Fracture of left distal radius: Code(s): S52.502A - Unspecified fracture of the lower end of left radius, initial encounter for closed fracture Category: Medical (2) Nondisplaced fracture of styloid process of left ulna: Code(s): S52.615A - Nondisplaced fracture of left ulna styloid process, initial encounter for closed fracture Category: Medical Plan Assessment & Plan: 1. Left distal radius fracture, comminuted, intra-articular S/P fall, DOI: 02/15/25 2. Left ulnar styloid fracture, S/P fall, DOI: 02/15/25 I educated her about these conditions I discussed operative and non-operative treatment options The patient would like to proceed with surgery She was fitted for a velcro wrist splint, to be worn like a cast until her DOS. 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 She was given a note for work to remain out of work for the next 6 weeks, at least. The risks and benefits of operative treatment were discussed with the patient and the patient wishes to proceed with surgery. These risks include, but are not limited to risk of damage to blood vessels, nerves, tendons, infection, recurrence, incomplete relief of preoperative symptoms, persistent pain, pos sible need for further surgery and the risks associated with regional blocks and anesthesia. The plan is to take the patient to the operating room sometime on 02/22/25 for the following procedures: 1. Left distal radius ORIF, under general All of the preoperative paperwork including the consent was reviewed today. All the patient's questions were answered. The patient understands that they will be contacted by our com writer soon to schedule this procedure She denies Diabetes, blood thinners, asthma, heart, lung, kidney issues Scribed for Brit Slaughter MD by Philip Lockett curator medical museum, on 02/20/25 at 11:50 AM, EST. Orders: Orders XR wrist LT min 3V Today M25.532 - Pain in left wrist Coding Level of Care Code New Pt Level 4 (66929) Diagnoses Fracture of left distal radius S52.502A Nondisplaced fracture of styloid process of left ulna S52.615A
--- OUTSIDE RECORDS SUMMARY | 2025-02-20 14:27 | XMS_ITS ---
Author Name [facility] Organization Unknown Care Team Organization Name Specialty Phone Email Start Date End [facility] g[facility]
== END 2025-02-20 12:16 | disposition home or self-care (01) ==
LOC: HO.HOS 10:59
PROVIDERS: Visit Provider Orthopaedic Surgery
DX: S52.502A Unspecified fracture of the lower end of left radius, initial encounter for closed fracture (principal); S52.615A Nondisplaced fracture of left ulna styloid process, initial encounter for closed fracture
CPT/HCPCS: 99204

== ENCOUNTER → 2025-02-20 11:04 | Outpatient (BNV) | payer BC, SELFPAY | PROVIDERS: Visit Provider Radiology Diagnostic Radiology | DX: S52.512D Displaced fracture of left radial styloid process, subsequent encounter for closed fracture with routine healing (principal) | CPT/HCPCS: 73110 ==

== ENCOUNTER 2025-02-20 11:40 | Outpatient (REF) | payer BC, SELFPAY ==
--- NOTE | ~2025-02-20 | XR_ITS ---
EXAMINATION: XR WRIST 3 OR MORE VIEWS LEFT HISTORY: M25.532 - Pain in left wrist COMPARISON: Comparison is made with the prior examination dated 02/15/2025. FINDINGS: Three views of the left wrist are submitted. Osseous mineralization is normal. Again seen is a fracture of the distal radial metaphysis with an associated fracture of the ulnar styloid. The fracture lines remain visible. The joint spaces are preserved. The soft tissues are unremarkable. XR/XR wrist LT min 3V IMPRESSION: Fractures of the distal radial metaphysis and ulnar styloid without significant change. Electronically signed by: Dexter Gomez MD 02/20/2025 11:27 AM [facility]
== END 2025-02-20 11:41 | disposition home or self-care (01) ==
LOC: HO.HOSX 11:40
PROVIDERS: Visit Provider Orthopaedic Surgery
DX: S52.502A Unspecified fracture of the lower end of left radius, initial encounter for closed fracture (principal); S52.615A Nondisplaced fracture of left ulna styloid process, initial encounter for closed fracture; W19.XXXA Unspecified fall, initial encounter; Y93.9 Activity, unspecified; Y92.9 Unspecified place or not applicable; Y99.9 Unspecified external cause status
CPT/HCPCS: 73110

== ENCOUNTER 2025-02-22 05:44 | Day surgery (SDC) | payer BC, SELFPAY ==
--- NOTE | 2025-02-21 09:36 | HO.ANESPROP2 ---
Documented by User: Marcela Alejandra NP 02/21/25 09:36 HPI - Anesthesia Eval Consult details Narrative: 59yo F for Left Radius Distal Fracture ORIF [facility] Active Problems Active Problems: All Active Problems Nondisplaced fracture of styloid process of left ulna (Acute) Fracture of left distal radius (Acute) Patellofemoral arthritis of left knee (Acute) Past Medical History Medical History Heartburn Hypertriglyceridemia Hepatic hemangioma Vertigo HTN (hypertension) Surgical History Surgical History H/O colonoscopy H/O: hysterectomy Social History Social History Alcohol intake: current Alcohol intake frequency: holidays/special occasions only Patient Tobacco Use Status: Never used Tobacco Current occupational status: employed Current occupation: [employer] Allergies Allergy/AdvReac Type Severity Reaction Status Date / Time No Known Allergies Allergy Verified 02/22/25 06:03 Home Medications ?Medication ?Instructions ?Recorded ?Confirmed ?Last Taken ?Type amlodipine 5 mg tablet 5 mg PO DAILY 01/16/25 02/22/25 Unknown History Assessment and Plan Assessment Anesthesia Assessment: Chart Reviewed Documented by User: Sacha Pink MD 02/22/25 08:14 [facility] Past Medical History Medical History Heartburn Hypertriglyceridemia Hepatic hemangioma Vertigo HTN (hypertension) Functional capacity: independent ambulation Patient : No Family History Family history of problems with anesthesia: No Surgical History Surgical History H/O colonoscopy H/O: hysterectomy History of Problems with Anesthesia: No Social History Social History Alcohol intake: current Alcohol intake frequency: holidays/special occasions only Patient Tobacco Use Status: Never used Tobacco Current occupational status: employed Current occupation: [employer] Allergies Allergy/AdvReac Type Severity Reaction Status Date / Time No Known Allergies Allergy Verified 02/22/25 06:03 Home Medications ?Medication ?Instructions ?Recorded ?Confirmed ?Last Taken ?Type amlodipine 5 mg tablet 5 mg PO DAILY 01/16/25 02/22/25 Unknown History Exam Exam Date and Time: 02/22/2025 Airway Mallampati Class: II TM Dist: <=3cm Neck ROM: Full Partial: Upper Loose/Missing/Broken Teeth: Yes (upper partial denture) Heart: rrr Lungs: cta Other: normal Assessment and Plan Final Anesthetic Review Family History of Problems with Anesthesia: No History of Problems with Anesthesia: No NPO: Yes ASA Class: III Final Preanesthetic Review: No Changes in Pt Med Stat, Meds/Allgs Chart Reviewed, Consent Obtained/Reviewed and Anes Risks/Benef Reviewed Patient Risk: Intermediate Procedure Risk: Low Anesthetic Plan Anesthetic Plan: GA, Regional Block and Agree w/ Assess. and Plan Disposition: Standard PACU
[2025-02-22] VITALS (7 sets, daily range): BP systolic 139–151; BP diastolic 67–78; PULSE 69–87; RESP 10–16; TEMP 36.1–36.6; O2SAT 94–97; BMI 27.2
--- NOTE | ~2025-02-22 | FL_ITS ---
EXAMINATION: XR FLUOROSCOPY WITH IMAGES CLINICAL INFORMATION: [Left radius distal fracture ORIF COMPARISON: X-ray 12/21/2024 TECHNIQUE: Fluoroscopy time: 61 seconds DAP: 2.2 mGy Images: 5 FINDINGS: Fluoroscopy provided for ORIF of a distal fracture of the radius No radiologist present. FL/FL guidance in OR IMPRESSION: Fluoroscopy provided for surgery. See surgical report for details. Electronically signed by: Olu Ramirez MD 02/22/2025 02:52 PM [facility]
[2025-02-22] MEDS: Lactated Ringers 1,000 ML 100 ML IVCONT (06:26)
--- NOTE | 2025-02-22 07:36 | MHC.SHP ---
Pre-Procedural Eval Section A - 24 Hr Update-Section A only Date of Service: 02/22/25 The patient is an INPATIENT: No Changes since office visit: No Cold of Flu in the past 2 weeks, No New Medical Problems, No Changes in Medication and No Patient answered all questions The patient has been examined within 24 hours of the surgical procedure. The History & Physical has been completed within 30 days and I have reviewed it.: Yes Section B - Complete if H&P > 30 days Chief Complaint: Displaced fracture of head of left radius, initial Allergies: Allergies Allergy/AdvReac Type Severity Reaction Status Date / Time No Known Allergies Allergy Verified 02/22/25 06:03 Plan I have reviewed the history and physical and performed a pertinent physical examination on my patient. No changes have occurred unless specified. Time Spent With Patient Time: Total time managing care of this patient today ____ minutes.
--- NOTE | 2025-02-22 07:36 | W.PM.OPN ---
Operative Note Operative Note Date of Service: 02/22/25 Narrative: Operative Note Narrative: Preop diagnosis: 1. Left Distal radius fracture Postop diagnosis: Same Procedure: 1. Left Distal radius fracture open reduction internal fixation, 2 part intra-articular Surgeon: Brit Slaughter MD Chief Librarian Work With Blind: Tremaine GARZA Anesthesia: General anesthesia plus regional block Findings: Comminuted intra-articular distal radius fracture Implants: A 3 hole narrow Accu Med volar locking plate, with 4 X 2.3 mm locking pegs/screws, and 3 3.5 mm cortical screws Tourniquet time: 46 minutes EBL: 5.0 ml Specimen: None Drains: None Complications: None Disposition: Brought to the recovery room in stable condition Plan: Follow-up in 10-14 days for wound check, suture removal and postop radiographs The patient will be placed in either a short-arm cast . Encouraged no lifting of anything heavier than a cell phone. Please encourage active and passive range of motion of the digits. Follow-up at 4-5 weeks postop for repeat radiographs. Indications: The patient is a 59 year old woman with left comminuted intra-articular distal radius fracture . The risks and benefits of operative treatment, including but not limited to risk of damage to blood vessels, nerves, tendons, infection, recurrence, persistent pain or numbness, incomplete resolution of preoperative symptoms, or need for further surgery were discussed with the patient and they wished to proceed with surgery. Procedure: Once consent was obtained patient was brought back to the operating suite and placed in the operating table in a supine position. A regional block was performed by the anesthesia team. Perioperative antibiotics and anesthesia was administered by the anesthesia team. A tourniquet was applied to the proximal aspect of the left upper extremity and the limb was prepped and draped in a standard surgical fashion. The limb was elevated exsanguinated with Esmarch bandage and the tourniquet inflated to 250 mm of mercury for a total tourniquet time of minutes. The FluoroScan was used throughout the case to assess our reduction, and facilitate implant placement. A gentle closed reduction was 1st performed on the patient's left distal radius fracture. Was assessed radiographically before proceeding with the reduction internal fixation. I then made an 8 cm longitudinal incision over the distal aspect of the flexor carpi radialis tendon. The incision was made through the skin to the subcutaneous tissue using a 15. Blade. Then carefully dissected down to flexor carpi radialis tendon she tenotomy scissors. The FCR tendon sheath was then incised longitudinally using tenotomy scissors under direct visualization. The FCR tendon was then retracted ulnarly. I then made a longitudinal incision in the volar forearm fascia through the floor of FCR tendon sheath using tenotomy scissors under direct visualization. I identified the interval between the radial artery and the flexor tendons. This interval was developed further with my index finger, releasing some of the muscular fibers of the flexor pollicis longus. A dull weatlander retractor was then placed. I then created an ulnarly based flap of the pronator quadratus by releasing the radial and distal edges using a 15. Blade. A Reeder elevator was used to elevate the pronator quadratus from the volar surface of the distal radius. This then revealed to us our distal radius fracture. An open reduction was then performed on our distal radius fracture. I then placed a short narrow 3 hole Accu Med volar locking plate on the volar surface of the distal radius. I placed a single K-wire through the distal aspect of the plate and into the distal radius. This was assessed using fluoroscopic images. I was satisfied with the placement of our plate. I then placed 4 X 2.3 mm locking screws/pegs in the distal aspect of the plate and distal radius by 1st drilling bicortically with a 2.0 mm drill bit, measuring with a depth gauge, and placing the appropriate length locking screws/pegs. The placement of our plate and screws was then assessed again using fluoroscopic images. The once satisfied with the placement of the volar locking plate and screws on the distal aspect of the distal radius, the plate was then reduced to the shaft of the radius. I then placed 3 X 3.5 mm cortical screws to the proximal aspect of the plate and into the shaft of the radius. This was done by 1st drilling bicortically with a 2.8 mm drill bit, measuring with a depth gauge, and placing the appropriate length screw. Final radiographs were then obtained. The DRUJ was assessed and found to be stable on exam. I was satisfied with our reduction and placement of all implants. At this point the wound was irrigated with normal saline. The pronator quadratus was reduced back over the volar locking plate using some 3-0 Vicryl suture material. The tourniquet was then deflated and hemostasis was obtained with a brief period of local pressure and bipolar monopolar electrocautery. The subcutaneous layer was then reapproximated using some 4-0 Vicryl suture, and the skin edges were reapproximated using some 5 0 Prolene suture. The wound was then infiltrated with some 1% lidocaine with epinephrine postop pain control. A sterile dressing and a short dorsal splint allowing for active flexion and extension of the digits was applied. The patient appears to have tolerated the procedure well and with no complications. All digits were well vascularized conclusion of the case.
== END 2025-02-22 10:43 | disposition home or self-care (01) ==
PROVIDERS: Visit Provider Orthopaedic Surgery
PROC: (CPT 25608; principal; 2025-02-22 07:30)
DX: S52.572A Other intraarticular fracture of lower end of left radius, initial encounter for closed fracture (principal); S52.615A Nondisplaced fracture of left ulna styloid process, initial encounter for closed fracture; M25.532 Pain in left wrist; R20.0 Anesthesia of skin; R20.2 Paresthesia of skin; W01.0XXA Fall on same level from slipping, tripping and stumbling without subsequent striking against object, initial encounter; Y93.01 Activity, walking, marching and hiking; Y92.9 Unspecified place or not applicable; Y99.9 Unspecified external cause status
CPT/HCPCS: 25608; C1713; J0131; J0665; J0690; J1100; J1885; J2003; J2004; J2250; J2405; J2704; J3010

== ENCOUNTER → 2025-02-22 05:44 | Outpatient (BNV) | payer BC, SELFPAY | PROVIDERS: Visit Provider Orthopaedic Surgery | DX: S52.592A Other fractures of lower end of left radius, initial encounter for closed fracture (principal) | CPT/HCPCS: 25608 ==

== ENCOUNTER 2025-03-06 07:56 | Outpatient (REF) | payer BC, SELFPAY ==
--- NOTE | ~2025-03-06 | XR_ITS ---
EXAMINATION: XR WRIST 3 OR MORE VIEWS LEFT HISTORY: M25.532 - Pain in left wrist COMPARISON: Comparison is made with the prior examination dated 02/20/2025. FINDINGS: Three views of the left wrist are submitted. Osseous mineralization is normal. In the interval since the prior study, the patient is status post internal fixation of the previously seen fracture of the distal radius with a sideplate and multiple orthopedic screws. Fracture lines remain visible. Ulnar styloid fracture is again noted. The joint spaces are preserved. The soft tissues are unremarkable. XR/XR wrist LT min 3V IMPRESSION: Internally fixed fracture of the distal radial metaphysis. Ulnar styloid fracture without change. Electronically signed by: Dexter Gomez MD 03/06/2025 10:51 AM [facility]
== END 2025-03-06 07:57 | disposition home or self-care (01) ==
LOC: HO.HOSX 07:56
DX: S52.502D Unspecified fracture of the lower end of left radius, subsequent encounter for closed fracture with routine healing (principal); S52.615D Nondisplaced fracture of left ulna styloid process, subsequent encounter for closed fracture with routine healing; X58.XXXD Exposure to other specified factors, subsequent encounter
CPT/HCPCS: 73110

== ENCOUNTER 2025-03-06 09:54 | Outpatient (AMB) | payer BC, SELFPAY ==
--- NOTE | 2025-03-06 09:56 | MHC.OFFVIS ---
Vital Signs 03/06/25 09:57 Height 5 ft 1 in Weight 143 lb BMI 27.0 Intake Visit Reasons: PO LT distal radius ORIF 02/22/25 AR Intake Note: Richardson is a 59 year old right hand dominant female who presents today for her first post operative visit s/p Left Distal Radius ORIF, DOS: 02/22/[address] Slaughter. Patient complains of pain and numbness all around her left hand and wrist. She continues taking her Percocet as prescribed. Sutures removed in office and Ster-strips applied. Allergies No Known Allergies Allergy (Verified 03/06/25 09:57) HPI HPI PO LT distal radius ORIF 02/22/25 AR: Details: Richardson is a 59 year old right hand dominant female who presents today for her first post operative visit s/p Left Distal Radius ORIF, DOS: 02/22/[address] Slaughter. Patient complains of pain and numbness all around her left hand and wrist, states that this has been happening intermittently since after surgery.. She continues taking her Percocet as prescribed. Sutures removed in office and Ster-strips applied. [facility] Medical History Heartburn Hypertriglyceridemia Hepatic hemangioma Vertigo HTN (hypertension) Surgical History H/O colonoscopy H/O: hysterectomy Social History Alcohol intake: current Alcohol intake frequency: holidays/special occasions only Patient Tobacco Use Status: Never used Tobacco Current occupational status: employed Current occupation: [employer] Review of Systems Const All systems reviewed & are unremarkable except as noted in HPI and below Physical Exam Vital Signs: BMI result Body Mass Index 27.0 Extrem Other: Patient is alert, oriented, and in no acute distress. Neuro: Normal sensation of the tips of all digits of the left hand at this time Vascular: Cap refill brisk Pain: Tenderness to palpation about left distal radius and left ulnar styloid Some discomfort with range of motion of the left hand ROM: Patient was able to make a closed fist and extend all digits of the left hand fully Skin: Well approximated and well healing incision site noted over the left distal radius No lacerations or abrasions. General: Minimal edema noted at this time No ecchymosis, erythema, or evidence of infection. Psych: Appears grossly normal Affect normal Attitude cooperative Office Procedures Casting/Splints 76899-Tcxc/Wrist Cast Application Procedure code (CPT) selection complete Results Reviewed Results Reviewed: X-rays obtained in the office today and independently reviewed by me, Tremaine Charles PA-C, demonstrate left distal radius fracture status post ORIF with all orthopedic hardware in place and in satisfactory clinical alignment. There is also noted to be a nondisplaced left ulnar styloid fracture.. Assessment & Plan Assessment & Plan (1) Fracture of left distal radius: Code(s): S52.502A - Unspecified fracture of the lower end of left radius, initial encounter for closed fracture Category: Medical (2) Nondisplaced fracture of styloid process of left ulna: Code(s): S52.615A - Nondisplaced fracture of left ulna styloid process, initial encounter for closed fracture Category: Medical Plan 1. Status post left distal radius ORIF 2. Nondisplaced left ulnar styloid fracture DOS 02/22/2025 Patient appears to be recovering well postoperatively Patient was educated about the typical recovery course Sutures removed, Steri-Strips applied without issue Patient was placed into a short-arm cast at this time Patient was educated on proper cast care and precautions 2 lb weight limit in left hand until follow-up Patient was educated to work on range of motion of the left hand while in the cast Patient understands this and is amenable to this plan Follow-up in 2 weeks with repeat x-rays for reassessment, anticipate cast removal at that time, sooner with any acute concerns Orders: Orders XR wrist LT min 3V Today M25.532 - Pain in left wrist Coding Level of Care Code Global (85457) Diagnoses Fracture of left distal radius S52.502A Nondisplaced fracture of styloid process of left ulna S52.615A CPT Codes Casting - CPT: 79809-Ubqr/Wrist Cast Application ([id number])
[2025-03-06 09:57] VITALS: BMI 27.0
== END 2025-03-06 10:41 | disposition home or self-care (01) ==
LOC: HO.HOS 09:55
DX: S52.502A Unspecified fracture of the lower end of left radius, initial encounter for closed fracture (principal); S52.615A Nondisplaced fracture of left ulna styloid process, initial encounter for closed fracture
CPT/HCPCS: 29075; 99024

== ENCOUNTER → 2025-03-06 09:57 | Outpatient (BNV) | payer BC, SELFPAY | PROVIDERS: Visit Provider Radiology Diagnostic Radiology | DX: S52.502A Unspecified fracture of the lower end of left radius, initial encounter for closed fracture (principal) | CPT/HCPCS: 73110 ==